=== PATIENT | female | born 1990 | race Two or more races ===

== ENCOUNTER 2016-11-30 20:29 | Emergency (ER) | payer SELFPAY ==
[~2016-11-30] VITALS: Ht 167.6 cm; Wt 61.2 kg
[2016-11-30 21:02] LABS: BILIRUBIN,URINE NEGATIVE (NEG); GLUCOSE,URINE NEGATIVE (NEG); NITRITE,URINE NEGATIVE (NEG); PROTEIN,URINE NEGATIVE (NEG-TRACE); UROBILINOGEN,URINE 0.2 mg/dL (0.2 mg/dL)
[2016-11-30 21:10] LABS: BACTERIA,URINE 0 /HPF (0-FEW); RBC,URINE RARE /HPF (0-2); SQUAMOUS EPITHELIAL CELL,UR FEW /LPF; WBC,URINE OCC /HPF (0-4)
[2016-11-30] MEDS ORDERED: IV NORMAL SALINE 1000ML BAG 1,000 ML IV SCH (21:30)
--- NOTE | 2016-11-30 21:37 | PHYS DOC ---
Past Medical History Past Medical History: No Pertinent History Past Surgical History: No Surgical History Alcohol Use: None Drug Use: None Adult General Chief Complaint Chief Complaint: VAGINAL BLEEDING HPI HPI Patient is a 26 year old female who presents with complaint of vaginal bleeding. The patient is approximately 8 weeks based off of her last menstrual period of September 30, 2016 who follows at [facility] for care. Patient states that her spotting started earlier today. Patient denies any associated cramping. Patient states that she has had abnormal brownish discharge. Patient denies any fevers, nausea, or vomiting. Patient states that she has not had anything similar in her previous 2 pregnancies. Patient states her previous 2 pregnancies had no complications. Patient denies any pain currently. Review of Systems Review of Systems Constitutional: Denies fever or chills [] Eyes: Denies change in visual acuity, redness, or eye pain [] HENT: Denies nasal congestion or sore throat [] Respiratory: Denies cough or shortness of breath [] Cardiovascular: Denies chest pain or edema [] GI: Denies abdominal pain, nausea, vomiting, bloody stools or diarrhea [] : Vaginal bleeding, abnormal discharge [] Musculoskeletal: Denies back pain or joint pain [] Integument: Denies rash or skin lesions [] Neurologic: Denies headache, focal weakness or sensory changes [] Current Medications Current Medications Current Medications Medications (Trade) Dose Ordered Sig/Kiana Start Time Stop Time Status Last Admin Dose Admin Azithromycin (Zithromax) 1,000 mg 1X ONCE 11/30/16 23:00 11/30/16 23:01 UNV Ceftriaxone Sodium (Rocephin Im) 250 mg 1X ONCE 11/30/16 23:00 11/30/16 23:01 UNV Metronidazole (Flagyl) 500 mg 1X ONCE 11/30/16 23:00 11/30/16 23:01 UNV Sodium Chloride 1,000 ml @ 1,000 mls/hr Q1H 11/30/16 21:30 11/30/16 22:29 DC 11/30/16 22:11 1,000 MLS/HR Allergies Allergies Allergies Coded Allergies Type Severity Reaction Last Updated Verified No Known Drug Allergies 01/06/14 No Physical Exam Physical Exam Constitutional: Well developed, well nourished, no acute distress, non-toxic appearance. [] HENT: Normocephalic, atraumatic, bilateral external ears normal, oropharynx moist, no oral exudates, nose normal. [] Eyes: PERRLA, EOMI, conjunctiva normal, no discharge. [] Neck: Normal range of motion, no tenderness, supple, no stridor. [] Cardiovascular:Heart rate regular rhythm, no murmur [] Lungs & Thorax: Bilateral breath sounds clear to auscultation [] Abdomen: Bowel sounds normal, soft, no tenderness, no masses, no pulsatile masses. [] Pelvic: Normal external exam, thick yellow discharge from cervical os present, no active bleeding from cervical os, no cervical motion tenderness, no midline or bilateral adnexal tenderness on bimanual exam Skin: Warm, dry, no erythema, no rash. [] Back: No tenderness, no CVA tenderness. [] Extremities: No tenderness, no cyanosis, no clubbing, ROM intact, no edema. [] Neurologic: Alert and oriented X 3, normal motor function, normal sensory function, no focal deficits noted. [] Current Patient Data Vital Signs Vital Signs Date Time Temp Pulse Resp B/P (MAP) Pulse Ox O2 Delivery O2 Flow Rate FiO2 11/30/16 20:48 98.7 71 14 127/71 (89) 99 Room Air 98.7 Lab Values Laboratory Tests Test 11/30/16 19:52 11/30/16 20:28 11/30/16 21:46 POC Urine HCG, Qualitative Hcg positive (Negative) Urine Collection Type Unknown Urine Color Yellow Urine Clarity Cloudy Urine pH 8.0 Urine Specific [place] 1.015 Urine Protein Negative mg/dL (NEG-TRACE) Urine Glucose (UA) Negative mg/dL (NEG) Urine Ketones (Stick) Negative mg/dL (NEG) Urine Blood Moderate (NEG) Urine Nitrite Negative (NEG) Urine Bilirubin Negative (NEG) Urine Urobilinogen Dipstick 0.2 mg/dL (0.2 mg/dL) Urine Leukocyte Esterase Trace (NEG) Urine RBC Rare /HPF (0-2) Urine WBC Occ /HPF (0-4) Urine Squamous Epithelial Cells Few /LPF Urine Bacteria 0 /HPF (0-FEW) Urine Mucus Marked /LPF White Blood Count 12.4 x10^3/uL (4.0-11.0) H Red Blood Count 3.96 x10^6/uL (3.50-5.40) Hemoglobin 12.7 g/dL (12.0-15.5) Hematocrit 36.3 % (36.0-47.0) Mean Corpuscular Volume 92 fL (79-100) Mean Corpuscular Hemoglobin 32 pg (25-35) Mean Corpuscular Hemoglobin Concent 35 g/dL (31-37) Red Cell Distribution Width 12.6 % (11.5-14.5) Platelet Count 255 x10^3/uL (140-400) Neutrophils (%) (Auto) 77 % (31-73) H Lymphocytes (%) (Auto) 16 % (24-48) L Monocytes (%) (Auto) 7 % (0-9) Eosinophils (%) (Auto) 1 % (0-3) Basophils (%) (Auto) 1 % (0-3) Neutrophils # (Auto) 9.5 x10^3uL (1.8-7.7) H Lymphocytes # (Auto) 1.9 x10^3/uL (1.0-4.8) Monocytes # (Auto) 0.8 x10^3/uL (0.0-1.1) Eosinophils # (Auto) 0.1 x10^3/uL (0.0-0.7) Basophils # (Auto) 0.1 x10^3/uL (0.0-0.2) Maternal Serum HCG Beta Subunit 052085 mIU/mL (0-5) H Sodium Level 138 mmol/L (136-145) Potassium Level 3.3 mmol/L (3.5-5.1) L Chloride Level 102 mmol/L (98-107) Carbon Dioxide Level 28 mmol/L (21-32) Anion Gap 8 (6-14) Blood Urea Nitrogen 5 mg/dL (7-20) L Creatinine 0.6 mg/dL (0.6-1.0) Estimated GFR (Cockcroft-Gault) 119.0 BUN/Creatinine Ratio 8 (6-20) Glucose Level 86 mg/dL (70-99) Calcium Level 9.1 mg/dL (8.5-10.1) Magnesium Level 1.9 mg/dL (1.8-2.4) Total Bilirubin 0.2 mg/dL (0.2-1.0) Aspartate Amino Transferase (AST) 13 U/L (15-37) L Alanine Aminotransferase (ALT) 12 U/L (14-59) L Alkaline Phosphatase 59 U/L (46-116) Total Protein 7.7 g/dL (6.4-8.2) Albumin 3.5 g/dL (3.4-5.0) Albumin/Globulin Ratio 0.8 (1.0-1.7) L Laboratory Tests 11/30/16 21:46 Laboratory Tests 11/30/16 21:46 Microbiology 11/30/16 Wet Prep - Final, Complete EKG EKG Not performed [] Radiology/Procedures Radiology/Procedures Limited transabdominal bedside ultrasound performed and interpreted by myself: Intrauterine , surrounding subchorionic hemorrhage, pole present , heart rate 169 bpm, no adnexal masses or free fluid [] Course & Med Decision Making Course & Med Decision Making Pertinent Labs and Imaging studies reviewed. (See chart for details) The patient's wet prep was positive for clue cells and yeast. Patient has abnormal discharge on exam but no significant cervical motion tenderness or midline tenderness. Due to presence of discharge, the patient will be empirically treated with Rocephin and azithromycin for the possible presence of gonorrhea and/or chlamydia. Inform the patient that result would be available in 3 days and the patient will be contacted at the number provided at registration if any tests are positive. Advised return to the emergency department for any worsening symptoms. Advised follow-up with the patient's physician at [facility] in the next 2-3 days for reevaluation. Patient voiced understanding and in agreement with treatment plan. Dragon Disclaimer Dragon Disclaimer This electronic medical record was generated, in whole or in part, using a voice recognition dictation system. Departure Departure Impression: Primary Impression: Vaginal bleeding in Additional Impressions: Candidal vulvovaginitis Bacterial vaginosis Disposition: 01 HOME, SELF-CARE Condition: IMPROVED Referrals: UNKNOWN PCP NAME (PCP) Patient Instructions: Bacterial Vaginosis, Candidal Vulvovaginitis, Easy-to- Read, Vaginal Bleeding During , First Trimester Additional Instructions: Follow-up in 2-3 days with your physician at [facility] for reevaluation and repeat hCG testing. Return to the emergency department for any worsening symptoms. Scripts Clotrimazole (UCPK-[id number]) 45 Gm Cream.appl 1 AGNIESZKA VG QHS for 7 Days, #7 EACH Prov: BRUNILDA BRIAN MD 11/30/16 Metronidazole (FLAGYL) 500 Mg Tablet 1 TAB PO BID, #14 TAB Prov: BRUNILDA BRIAN MD 11/30/16 Problem Qualifiers Primary Impression: Vaginal bleeding in Trimester: first trimester Qualified Codes: O46.91 - Antepartum hemorrhage, unspecified, first trimester BRUNILDA BRIAN MD Nov 30, 2016 21:37
[2016-11-30 22:02] LABS: BASO # 0.1 x10^3/uL (0.0-0.2); BASO % 1 % (0-3); EOS % 1 % (0-3); HEMATOCRIT 36.3 % (36.0-47.0); HEMOGLOBIN 12.7 g/dL (12.0-15.5); LYMPH # 1.9 x10^3/uL (1.0-4.8); LYMPH % 16 % (24-48); MEAN CORPUSCULAR HEMOGLOBIN 32 pg (25-35); MEAN CORPUSCULAR HGB CONC 35 g/dL (31-37); MEAN CORPUSCULAR VOLUME 92 fL (79-100); MONO % 7 % (0-9); NEUT % 77 % (31-73); PLATELET COUNT 255 x10^3/uL (140-400); RED BLOOD COUNT 3.96 x10^6/uL (3.50-5.40); RED CELL DISTRIBUTION WIDTH 12.6 % (11.5-14.5); WHITE BLOOD COUNT 12.4 x10^3/uL (4.0-11.0)
[2016-11-30 22:13] LABS: CALCIUM 9.1 mg/dL (8.5-10.1); CREATININE 0.6 mg/dL (0.6-1.0); POTASSIUM 3.3 mmol/L (3.5-5.1)
[2016-11-30 22:19] LABS: ALBUMIN 3.5 g/dL (3.4-5.0); ALBUMIN/GLOBULIN RATIO 0.8 (1.0-1.7); MAGNESIUM 1.9 mg/dL (1.8-2.4); TOTAL BILIRUBIN 0.2 mg/dL (0.2-1.0); TOTAL PROTEIN 7.7 g/dL (6.4-8.2)
[2016-11-30 23:00] VITALS: BP 100/60
[2016-11-30] MEDS ORDERED: METR500T PO (23:12)
[2016-11-30] MEDS ORDERED: CLOT45CR9 VG (23:13)
[2016-11-30] MEDS ORDERED: AZITHROMYCIN 250 MG TABLET. PO ONE (23:30)
[2016-11-30] MEDS ORDERED: metroNIDAZOLE 500 MG TABLET PO ONE (23:30)
[2016-11-30] MEDS ORDERED: cefTRIAXone IM 250 MG VIAL IM ONE (23:30)
== END 2016-11-30 23:29 | disposition home or self-care (01) ==
LOC: ER 20:29
DX: O46.91 Antepartum hemorrhage, unspecified, first trimester (principal); O23.591 Infection of other part of genital tract in pregnancy, first trimester; N76.0 Acute vaginitis; B96.89 Other specified bacterial agents as the cause of diseases classified elsewhere; O98.811 Other maternal infectious and parasitic diseases complicating pregnancy, first trimester; B37.3 Candidiasis of vulva and vagina; Z3A.08 8 weeks gestation of pregnancy
CPT/HCPCS: 36415; 80053; 81001; 81025; 83735; 84702; 85027; 86900; 86901; 87086; 87491; 87591; 96360; 96372; 99285; J0696; J7030; Q0111; Q0144

== ENCOUNTER 2017-06-13 11:36 | Observation (INO) | payer SELFPAY ==
[2017-06-13 12:26] LABS: BILIRUBIN,URINE SMALL (NEG); CLARITY,URINE CLOUDY; GLUCOSE,URINE NEGATIVE (NEG); NITRITE,URINE NEGATIVE (NEG); PROTEIN,URINE NEGATIVE (NEG-TRACE); UROBILINOGEN,URINE 0.2 mg/dL (0.2 mg/dL)
[2017-06-13 12:33] LABS: COLOR,URINE YELLOW
[2017-06-13 12:34] LABS: BACTERIA,URINE MANY /HPF (0-FEW); SQUAMOUS EPITHELIAL CELL,UR MANY /LPF; WBC,URINE 20-40 /HPF (0-4)
[2017-06-13] MEDS: ACETAMINOPHEN 500 MG TABLET PO (14:00)
== END 2017-06-13 14:00 | disposition home or self-care (01) ==
LOC: US 11:36 → 3 SO LND 11:42
DX: O26.893 Other specified pregnancy related conditions, third trimester (principal); R10.30 Lower abdominal pain, unspecified; M54.5 Low back pain; Z3A.36 36 weeks gestation of pregnancy
CPT/HCPCS: 81001; 87086; G0378; G0379

== ENCOUNTER 2017-06-25 13:42 | Inpatient (IN) | payer SELFPAY ==
[2017-06-25] MEDS ORDERED: ONDANSETRON PF 4 MG/2 ML VIAL. IV (14:15)
[2017-06-25] MEDS ORDERED: BUTORPHANOL 2 MG/ML VIAL. IV ×2 (14:15)
[2017-06-25] MEDS ORDERED: CITRIC ACID/SODIUM CITRATE 30 ML SOLUTION. PO (14:15)
[2017-06-25] MEDS ORDERED: TERBUTALINE 1 MG/ML VIAL. SQ (14:15)
[2017-06-25] MEDS ORDERED: 0.9 % SODIUM CHLORIDE 10 ML DISP.SYRIN. IV (14:15)
[2017-06-25 14:48] LABS: ADD MAN DIFF? NO
[2017-06-25 14:50] LABS: BASO % 0 % (0-3); EOS % 0 % (0-3); HEMATOCRIT 33.5 % (36.0-47.0); HEMOGLOBIN 11.6 g/dL (12.0-15.5); LYMPH # 1.3 x10^3/uL (1.0-4.8); LYMPH % 10 % (24-48); MEAN CORPUSCULAR HEMOGLOBIN 32 pg (25-35); MEAN CORPUSCULAR HGB CONC 35 g/dL (31-37); MEAN CORPUSCULAR VOLUME 94 fL (79-100); MONO # 0.7 x10^3/uL (0.0-1.1); MONO % 5 % (0-9); NEUT # 10.9 x10^3uL (1.8-7.7); NEUT % 85 % (31-73); PLATELET COUNT 214 x10^3/uL (140-400); RED BLOOD COUNT 3.58 x10^6/uL (3.50-5.40); RED CELL DISTRIBUTION WIDTH 12.8 % (11.5-14.5); WHITE BLOOD COUNT 12.9 x10^3/uL (4.0-11.0)
[2017-06-25] MEDS: fentaNYL PF VIAL 100 MCG/2 ML VIAL IV (14:50)
[2017-06-25] MEDS: PENICILLIN G K 5,000,000 UNIT in IV DEXTROSE 5% 100 ML IV (15:08)
[2017-06-25] MEDS: IV RINGERS,LACTATED 1000ML 1,000 ML IV ×2 (15:23→22:10)
[2017-06-25 16:47] LABS: BILIRUBIN,URINE NEGATIVE (NEG); CLARITY,URINE CLEAR; COLOR,URINE YELLOW; GLUCOSE,URINE NEGATIVE (NEG); NITRITE,URINE NEGATIVE (NEG); PROTEIN,URINE NEGATIVE (NEG-TRACE); UROBILINOGEN,URINE 0.2 mg/dL (0.2 mg/dL)
[2017-06-25 16:57] LABS: BACTERIA,URINE MODERATE /HPF (0-FEW); RBC,URINE OCC /HPF (0-2); SQUAMOUS EPITHELIAL CELL,UR MOD /LPF
[2017-06-25] MEDS: OXYTOCIN 30 UNIT/500 ML PREMIX 500 ML IV (17:45)
[2017-06-25] MEDS ORDERED: diphenhydrAMINE HCL 25 MG CAPSULE PO (18:00)
[2017-06-25] MEDS ORDERED: IBUPROFEN 800 MG TABLET. PO (18:00)
[2017-06-25] MEDS ORDERED: ZOLPIDEM 5 MG TABLET. PO (18:00)
[2017-06-25] MEDS ORDERED: MMR per PROTOCOL. MC (18:00)
[2017-06-25] MEDS ORDERED: OXYTOCIN 30 UNIT/500 ML PREMIX 500 ML IV (18:00)
[2017-06-25] MEDS ORDERED: SIMETHICONE 80 MG TAB.CHEW PO (18:00)
[2017-06-25] MEDS ORDERED: PHENYLEPH/MINERAL OIL/PETROLAT RECTAL OINTMENT 28GM TUBE. RC (18:00)
[2017-06-25] MEDS ORDERED: ACETAMINOPHEN 325 MG TABLET. PO (18:00)
[2017-06-25] MEDS ORDERED: MAG HYDROX/ALUMINUM HYD/SIMETH 30 ML ORAL.SUSP PO (18:00)
[2017-06-25] MEDS ORDERED: MAGNESIUM HYDROXIDE 2,400 MG/30 ML ORAL.SUSP. PO (18:00)
[2017-06-25] MEDS ORDERED: HYDROCORTISONE 1% TOPICAL OINTMENT 30GM TUBE. TP (18:00)
[2017-06-25] MEDS: LIDOCAINE 1% PF 30 ML VIAL. INJ (18:36)
[2017-06-25] MEDS: IBUPROFEN 800 MG TABLET. PO (20:59)
[2017-06-25] MEDS: BENZOCAINE 20% TOPICAL AEROSOL SPRAY 57GM CAN. TP (20:59)
[2017-06-25] MEDS: DOCUSATE SODIUM 100 MG CAPSULE. PO (22:42)
[2017-06-25] MEDS: 0.9 % SODIUM CHLORIDE 10 ML DISP.SYRIN. IV (22:43)
[2017-06-25] MEDS: oxyCODONE/APAP 5/325 1 TAB TABLET PO (22:47)
[2017-06-25] MEDS: PENICILLIN G K 2,500,000 UNIT in IV DEXTROSE 5% 50 ML IV (23:00)
[2017-06-26] MEDS: IBUPROFEN 800 MG TABLET. PO ×2 (04:40→21:07)
[2017-06-26] MEDS: oxyCODONE/APAP 5/325 1 TAB TABLET PO (04:40)
[2017-06-26 06:01] LABS: ADD MAN DIFF? NO
[2017-06-26 06:13] LABS: BASO % 0 % (0-3); EOS % 0 % (0-3); HEMATOCRIT 32.8 % (36.0-47.0); HEMOGLOBIN 11.3 g/dL (12.0-15.5); LYMPH # 1.4 x10^3/uL (1.0-4.8); LYMPH % 11 % (24-48); MEAN CORPUSCULAR HEMOGLOBIN 33 pg (25-35); MEAN CORPUSCULAR HGB CONC 35 g/dL (31-37); MEAN CORPUSCULAR VOLUME 94 fL (79-100); MONO # 0.7 x10^3/uL (0.0-1.1); MONO % 5 % (0-9); NEUT # 10.5 x10^3uL (1.8-7.7); NEUT % 83 % (31-73); PLATELET COUNT 167 x10^3/uL (140-400); RED BLOOD COUNT 3.49 x10^6/uL (3.50-5.40); WHITE BLOOD COUNT 12.6 x10^3/uL (4.0-11.0)
[2017-06-26 06:16] LABS: RPR Non Reactive (Non Reactive)
[2017-06-26] MEDS ORDERED: FERROUS SULFATE 325 MG TABLET. PO (08:00)
[2017-06-26] MEDS: DOCUSATE SODIUM 100 MG CAPSULE. PO ×2 (09:43→21:07)
[2017-06-27] MEDS: DOCUSATE SODIUM 100 MG CAPSULE. PO (09:22)
== END 2017-06-27 14:00 | disposition home or self-care (01) | DRG 775 ==
LOC: 3 SO LND 13:42 → 3 NORTH 21:42
PROC: 10E0XZZ Delivery of Products of Conception, External Approach (ICD-10-PCS; principal; 2017-06-25)
PROC: 0KQM0ZZ Repair Perineum Muscle, Open Approach (ICD-10-PCS; 2017-06-25)
DX: O40.3XX0 Polyhydramnios, third trimester, not applicable or unspecified (principal); O70.1 Second degree perineal laceration during delivery; Z37.0 Single live birth; Z3A.38 38 weeks gestation of pregnancy
CPT/HCPCS: 36415; 81001; 85025; 86593; 86850; 86900; 86901; 87086; G0378; J2540; J2590; J3010; J7120

== ENCOUNTER 2017-09-21 08:31 | Emergency (ER) | payer SELFPAY, MEDICAID ==
[2017-09-21 09:17] LABS: URINE HCG POC HCG NEGATIVE (Negative)
[2017-09-21] MEDS: IV NORMAL SALINE 1000ML BAG 1,000 ML IV (10:03)
[2017-09-21] MEDS: ONDANSETRON PF 4 MG/2 ML VIAL. IV (10:06)
[2017-09-21 10:11] LABS: BASO % 0 % (0-3); EOS % 0 % (0-3); HEMATOCRIT 35.8 % (36.0-47.0); HEMOGLOBIN 12.4 g/dL (12.0-15.5); LYMPH # 0.8 x10^3/uL (1.0-4.8); LYMPH % 7 % (24-48); MEAN CORPUSCULAR HEMOGLOBIN 32 pg (25-35); MEAN CORPUSCULAR HGB CONC 35 g/dL (31-37); MEAN CORPUSCULAR VOLUME 91 fL (79-100); MONO # 0.6 x10^3/uL (0.0-1.1); MONO % 5 % (0-9); NEUT # 10.5 x10^3uL (1.8-7.7); NEUT % 88 % (31-73); PLATELET COUNT 206 x10^3/uL (140-400); RED BLOOD COUNT 3.92 x10^6/uL (3.50-5.40); RED CELL DISTRIBUTION WIDTH 12.5 % (11.5-14.5)
[2017-09-21 10:14] LABS: ADD MAN DIFF? YES; BILIRUBIN,URINE NEGATIVE (NEG); CLARITY,URINE CLEAR; COLOR,URINE YELLOW; GLUCOSE,URINE NEGATIVE (NEG); NITRITE,URINE NEGATIVE (NEG); PROTEIN,URINE NEGATIVE (NEG-TRACE); UROBILINOGEN,URINE 0.2 mg/dL (0.2 mg/dL)
[2017-09-21 10:27] LABS: BACTERIA,URINE FEW /HPF (0-FEW); RBC,URINE >40 /HPF (0-2); SQUAMOUS EPITHELIAL CELL,UR FEW /LPF
[2017-09-21 10:30] LABS: ANION GAP 10 (6-14); BLOOD UREA NITROGEN 8 mg/dL (7-20); BUN/CREATININE RATIO 13 (6-20); CALCIUM 8.3 mg/dL (8.5-10.1); CARBON DIOXIDE 25 mmol/L (21-32); CHLORIDE 104 mmol/L (98-107); CREATININE 0.6 mg/dL (0.6-1.0); GFR 118.2; GLUCOSE 97 mg/dL (70-99); POTASSIUM 3.8 mmol/L (3.5-5.1); SODIUM 139 mmol/L (136-145)
[2017-09-21 10:33] LABS: ALBUMIN 3.5 g/dL (3.4-5.0); ALBUMIN/GLOBULIN RATIO 0.9 (1.0-1.7); ALK PHOS 65 U/L (46-116); ALT (SGPT) 30 U/L (14-59); AST (SGOT) 22 U/L (15-37); LIPASE 115 U/L (73-393); TOTAL BILIRUBIN 0.9 mg/dL (0.2-1.0); TOTAL PROTEIN 7.5 g/dL (6.4-8.2)
[2017-09-21] MEDS: KETOROLAC 30 MG/ML INJ. IV (11:01)
[2017-09-21] MEDS: IOHEXOL 300 MG/ML 100ML VIAL. IV ×2 (12:15→12:50)
[2017-09-21] MEDS ORDERED: CONTRAST GIVEN MC (12:15)
[2017-09-21 12:22] LABS: % BANDS 12 % (0-9); % LYMPHS 9 % (24-48); % MONOS 3 % (0-10); % SEGS 76 % (35-66)
[2017-09-21 12:23] LABS: PLT ESTIMATE ADEQUATE (ADEQUATE)
[2017-09-22 14:29] LABS: CHLAMYDIA PROBE Negative (Negative); GC PROBE Negative (Negative)
== END 2017-09-21 13:49 | disposition home or self-care (01) ==
LOC: ER 13:49
DX: N39.0 Urinary tract infection, site not specified (principal); Z79.899 Other long term (current) drug therapy
CPT/HCPCS: 36415; 74177; 76830; 76856; 80053; 81001; 81025; 83690; 85007; 85025; 87491; 87591; 96365; 96375; 99285; J0690; J1885; J2405; J7030; Q0111; Q9967

== ENCOUNTER → 2018-01-11 | Outpatient (CLI) | payer SELFPAY ==
[2017-09-21 12:51] VITALS: BP 100/58
[~2018-01-11] MED LIST: ASPI-630 PO; CEPH500T PO; CLOT45CR9 VG; HYDR-971 PO; METR500T PO; NAPR-514 PO
--- NOTE | 2018-01-11 16:37 | RAD ---
EXAM: Pelvic sonogram. HISTORY: Dysmenorrhea. TECHNIQUE: Transabdominal and transvaginal sonographic imaging of the pelvis was performed. COMPARISON: CT dated 09/21/2017 and sonogram dated 09/21/2017. FINDINGS: The uterus is retroflexed and measures 9.6 x 5.3 x 8.0 cm. The myometrium is heterogeneous, without a focal lesion. The endometrial stripe measures 12.7 mm in thickness. The right ovary measures 2.8 x 1.9 x 2.5 cm. The left ovary measures 3.1 x 1.7 x 2.3 cm. There is normal blood flow within both ovaries. There is a 1.4 cm heterogeneous isoechoic lesion within the right ovary which demonstrates surrounding blood flow. No convincing internal vascularity is seen. There are multiple bilateral ovarian follicles. There is free fluid within the posterior cul-de-sac. There are bilateral adnexal varicosities. There is a complex nabothian cyst with internal septation within the cervix, measuring 12 mm. IMPRESSION: 1. Prominent endometrial stripe consistent with the phase of the patient's menstrual cycle. 2. 1.4 cm heterogeneous isoechoic lesion within the right ovary, possibly a small hemorrhagic cyst. No convincing internal blood flow is seen to suggest a solid lesion. 3. Bilateral adnexal varices. Correlate for pelvic congestion. 4. Stable complex nabothian cyst within the cervix. 5. Small amount of nonspecific pelvic free fluid. Electronically signed by: Nargis Espinosa MD (01/11/2018 4:34 PM) [id number]
== END | disposition home or self-care (01) ==
LOC: US 15:07
PROVIDERS: ATTEND Obstetrics & Gynecology
DX: N88.8 Other specified noninflammatory disorders of cervix uteri (principal); I86.2 Pelvic varices
CPT/HCPCS: 76830; 76856